=== PATIENT | male | born 1980 | race Caucasian/White ===

== ENCOUNTER 2025-09-18 06:56 | Emergency (ER) | payer OTHER ==
[~2025-09-18] VITALS: Ht 167.6 cm; Wt 63.6 kg
[2025-09-18 07:15] VITALS: TEMP 98
[2025-09-18 07:30] VITALS: BP 121/79; PULSE 74; RESP 17; O2SAT 100
== END 2025-09-18 08:03 | disposition home or self-care (01) ==
LOC: EMS 06:56
DX: G40.909 Epilepsy, unspecified, not intractable, without status epilepticus (principal); Z00.00 Encounter for general adult medical examination without abnormal findings
CPT/HCPCS: 99283; Z7502